=== PATIENT | male | born 1975 | race Caucasian/White ===

== ENCOUNTER 2018-08-01 17:44 | Emergency (ER) | payer MEDICAID ==
[~2018-08-01] VITALS: Ht 177.8 cm; Wt 90.7 kg
[2018-08-01] MEDS ORDERED: TDAP DIPH,PERTUSS,TET VAC/PF 0.5 ML DISP.SYRIN IM ONE ×2 (18:09→18:15)
[2018-08-01] MEDS ORDERED: CEphaleXIN 500 MG CAPSULE ONE (18:10)
[2018-08-01] MEDS ORDERED: CEphaleXIN 500 MG CAPSULE PO ONE (18:15)
--- NOTE | 2018-08-01 18:15 | NUR ---
Patient discharged to home in stable conditon. Written and verbal after care instructions given. Patient verbalizes understanding of instructions.pt walks in steady gait.
== END 2018-08-01 18:19 | disposition home or self-care (01) ==
LOC: ER 17:44
DX: S91.331A Puncture wound without foreign body, right foot, initial encounter (principal); W22.8XXA Striking against or struck by other objects, initial encounter; Y93.39 Activity, other involving climbing, rappelling and jumping off; Y92.89 Other specified places as the place of occurrence of the external cause; Y99.8 Other external cause status
CPT/HCPCS: 90715; A4663